=== PATIENT | male | born 1965 | race Caucasian/White ===

== ENCOUNTER 2018-06-13 16:45 | Emergency (ER) | payer MEDICARE, MEDICAID ==
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
[2018-06-13] MEDS ORDERED: ACETAMINOPHEN 500 MG TAB PO ONE (17:20)
[2018-06-13] MEDS ORDERED: NS(*) 0.9% 1000 ML BAG 1,000 ML IV ONE (17:20)
[2018-06-13 18:28] LABS: PLATELET COUNT, AUTOMATED 232 K/uL (150-450)
[2018-06-13 18:30] VITALS: BP 127/67
[2018-06-13] MEDS ORDERED: ALBUTEROL 8 GM INHALER INH ONE (19:30)
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
== END 2018-06-13 19:40 | disposition home or self-care (01) ==
LOC: ER 17:32
DX: J10.1 Influenza due to other identified influenza virus with other respiratory manifestations (principal); F17.200 Nicotine dependence, unspecified, uncomplicated; R50.9 Fever, unspecified; S09.90XA Unspecified injury of head, initial encounter; M54.2 Cervicalgia; Y35.811A Legal intervention involving manhandling, law enforcement official injured, initial encounter
CPT/HCPCS: 70450; 71046; 72125; 85025; 87502; 99284; A9270; J3535; J7030; 82040; 82247; 82310; 82374; 82435; 82565; 82947; 84075; 84132; 84155; 84295; 84450; 84460; 84520

== ENCOUNTER → 2018-06-13 | Outpatient (CLI) | payer MEDICARE, MEDICAID | LOC: AMB 16:29 | PROVIDERS: ATTEND Nurse Practitioner | DX: R11.0 Nausea (principal); R10.32 Left lower quadrant pain; R10.31 Right lower quadrant pain | CPT/HCPCS: A0425; A0429 ==

== ENCOUNTER 2018-10-07 20:27 | Emergency (ER) | payer MEDICARE, MEDICAID ==
[2018-10-07] MEDS ORDERED: fentaNYL CITR 100 MCG/2 ML AMP IVP ONE (20:35)
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
[2018-10-07] MEDS ORDERED: KETAMINE HCL 500 MG/5 ML VIAL IM ONE ×3 (20:40→21:15)
[2018-10-07] MEDS ORDERED: IOPAMIDOL 76% 100 ML INFUS BTL 100 ML ONE (21:10)
[2018-10-07] MEDS ORDERED: KETAMINE HCL 500 MG/5 ML VIAL IVP ONE (21:35)
[2018-10-07 21:46] LABS: INR 0.98
[2018-10-07 21:56] LABS: PLATELET COUNT, AUTOMATED 333 K/uL (150-450)
[2018-10-07 22:30] VITALS: BP 130/80
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
--- NOTE | 2018-10-07 22:35 | RADIOLOGY IMAGING REPORT ---
[place] [facility] [place] NAME: Jarett Oneil : 1965 MR: [id number] V: [id number] EXAM DATE: ORDERING PHYSICIAN: TIFFANIE CHANEY TECHNOLOGIST: Location: [facility] Patient: Jarett Oneil : 1965 Visit/Account:[id number] Date of Sevice: 10/07/2018 EXAMINATION: CT cervical spine without IV contrast HISTORY: Trauma. TECHNIQUE: Thin axial CT images of the cervical spine were obtained without IV contrast, with sagit bella and coronal 2D reconstructed images. One of the following dose optimization techniques was utilized in the performance of this exam: Autom ated exposure control; adjustment of the mA and/or kV according to the patient's size; or use of an i terative reconstruction technique. Specific details can be referenced in the facility's radiology C T exam operational policy. COMPARISON: 06/13/2018. FINDINGS: Image quality is partially degraded by patient motion artifact. Allowing for this, there is no eviden ce of acute fracture or subluxation along the cervical spine. Normal alignment. Vertebral body height is maintained. 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 There is mild disc space narrowing at C4-C5 and C5-C6 with endplate osteophyte formation. Facet arthropathy along the upper cervical facet joints. The dens is intact. Normal alignment at the craniocervical junction. IMPRESSION: No acute osseous findings along the cervical spine, allowing for patient motion artifact. Report Dictated By: Gage Browning MD at 10/07/2018 10:26 PM Report E-Signed By: Gage Browning MD at 10/07/2018 10:30 PM WSN:[id number]
--- NOTE | 2018-10-07 23:01 | RADIOLOGY IMAGING REPORT ---
[place] [facility] [place] Jarett Oneil : 1965 MR: [id number] V: [id number] EXAM DATE: ORDERING PHYSICIAN: TIFFANIE CHANEY TECHNOLOGIST: Location: [facility] Patient: Jarett Oneil : 1965 Visit/Account:[id number] Date of Sevice: 10/07/2018 EXAMINATION: CT chest, abdomen, and pelvis with IV contrast CT thoracic and lumbar spine with IV contrast (reformatted) HISTORY: Trauma. TECHNIQUE: Axial CT images of the chest, abdomen, and pelvis were obtained with IV contrast, with c oronal and sagittal 2D reconstructed images. One of the following dose optimization techniques was utilized in the performance of this exam: Autom ated exposure control; adjustment of the mA and/or kV according to the patient's size; or use of an i terative reconstruction technique. Specific details can be referenced in the facility's radiology C T exam operational policy. Contrast: 75 mL of IV Isovue-370. COMPARISON: None. FINDINGS: Image quality is degraded by patient motion artifact. Chest: Lungs and pleura: The lungs are clear. No focal consolidation or evidence of pulmonary contusion. No pleural effusion or pneumothorax. Mediastinum and chelsi: Negative. Heart, aorta, and great vessels: The thoracic aorta is patent and normal in caliber. No evidence of traumatic aortic injury. Normal heart size. No pericardial effusion. Chest lymph node assessment: Negative. Bones: There are multiple old bilateral rib fractures. No evidence of any acute displaced rib fractu re. Old healed fracture of the sternal body. See separate thoracic spine findings below. Chest wall: Negative. Lower neck: Negative. Abdomen/pelvis: Liver: Negative. Gallbladder and bile ducts: Negative. Spleen: Negative. Pancreas: Negative. Adrenal glands: Negative. Kidneys: Negative. The kidneys enhance normally. No retroperitoneal fluid or hemorrhage. Bowel and peritoneum: The small bowel and colon are normal in caliber. No localized bowel wall thick ening. No free fluid or free intraperitoneal air. Pelvic structures: Negative. Lymph node assessment: Negative. Vessels: Mild vascular calcifications. Normal caliber abdominal aorta. Musculoskeletal: The bony pelvis appears intact. See separate lumbar spine findings below. Body wall: Negative. CT thoracic spine: There is minimal superior endplate wedging of T2 and T3, of indeterminate chronicity. Additional mild superior endplate wedging of T8 and T11, of indeterminate chronicity. No retropulsion. Vertebral bod y height is otherwise maintained along the thoracic spine. Posterior elements are intact, with normal alignment along the thoracic facet joints. Paraspinal soft tissues are unremarkable. CT lumbar spine: There are 5 lumbar-type vertebral segments with a transitional lumbosacral segment considered L6. There is mild superior endplate wedging of L2 with 20% loss of height, of indeterminate chronicity. V ertebral body height is otherwise maintained along the lumbar spine. Normal alignment. Disc spaces are relatively well-preserved with mild degenerative endplate changes. Posterior elements are intact, with moderate facet arthropathy along the mid and lower lumbar facet joints. The paraspi nal soft tissues are unremarkable. IMPRESSION: 1. Mild age-indeterminate wedging of T2, T3, T8, T11, and L2. These may represent chronic changes but without any prior imaging for comparison. 2. Old bilateral rib fractures. No definite acute rib fracture. 3. No other acute traumatic findings in the chest, abdomen, or pelvis, including on the dedicated tho racic and lumbar spine reformats. Report Dictated By: Gage Browning MD at 10/07/2018 10:30 PM Report E-Signed By: Gage Browning MD at 10/07/2018 10:54 PM WSN:[id number]
--- NOTE | 2018-10-07 23:01 | RADIOLOGY IMAGING REPORT ---
[place] [facility] [place] Jarett Oneil : 1965 MR: [id number] V: [id number] EXAM DATE: ORDERING PHYSICIAN: TIFFANIE CHANEY TECHNOLOGIST: [facility] Patient: Jarett Oneil : 1965 Visit/Account:[id number] Date of Sevice: 10/07/2018 EXAMINATION: CT chest, abdomen, and pelvis with IV contrast CT thoracic and lumbar spine with IV contrast (reformatted) HISTORY: Trauma. TECHNIQUE: Axial CT images of the chest, abdomen, and pelvis were obtained with IV contrast, with c oronal and sagittal 2D reconstructed images. One of the following dose optimization techniques was utilized in the performance of this exam: Autom ated exposure control; adjustment of the mA and/or kV according to the patient's size; or use of an i terative reconstruction technique. Specific details can be referenced in the facility's radiology C T exam operational policy. Contrast: 75 mL of IV Isovue-370. COMPARISON: None. FINDINGS: Image quality is degraded by patient motion artifact. Chest: Lungs and pleura: The lungs are clear. No focal consolidation or evidence of pulmonary contusion. No pleural effusion or pneumothorax. Mediastinum and chelsi: Negative. Heart, aorta, and great vessels: The thoracic aorta is patent and normal in caliber. No evidence of traumatic aortic injury. Normal heart size. No pericardial effusion. Chest lymph node assessment: Negative. Bones: There are multiple old bilateral rib fractures. No evidence of any acute displaced rib fractu re. Old healed fracture of the sternal body. See separate thoracic spine findings below. Chest wall: Negative. Lower neck: Negative. Abdomen/pelvis: Liver: Negative. Gallbladder and bile ducts: Negative. Spleen: Negative. Pancreas: Negative. Adrenal glands: Negative. Kidneys: Negative. The kidneys enhance normally. No retroperitoneal fluid or hemorrhage. Bowel and peritoneum: The small bowel and colon are normal in caliber. No localized bowel wall thick ening. No free fluid or free intraperitoneal air. Pelvic structures: Negative. Lymph node assessment: Negative. Vessels: Mild vascular calcifications. Normal caliber abdominal aorta. Musculoskeletal: The bony pelvis appears intact. See separate lumbar spine findings below. Body wall: Negative. CT thoracic spine: There is minimal superior endplate wedging of T2 and T3, of indeterminate chronicity. Additional mild superior endplate wedging of T8 and T11, of indeterminate chronicity. No retropulsion. Vertebral bod y height is otherwise maintained along the thoracic spine. Posterior elements are intact, with normal alignment along the thoracic facet joints. Paraspinal soft tissues are unremarkable. CT lumbar spine: There are 5 lumbar-type vertebral segments with a transitional lumbosacral segment considered L6. There is mild superior endplate wedging of L2 with 20% loss of height, of indeterminate chronicity. V ertebral body height is otherwise maintained along the lumbar spine. Normal alignment. Disc spaces are relatively well-preserved with mild degenerative endplate changes. Posterior elements are intact, with moderate facet arthropathy along the mid and lower lumbar facet joints. The paraspi nal soft tissues are unremarkable. IMPRESSION: 1. Mild age-indeterminate wedging of T2, T3, T8, T11, and L2. These may represent chronic changes but without any prior imaging for comparison. 2. Old bilateral rib fractures. No definite acute rib fracture. 3. No other acute traumatic findings in the chest, abdomen, or pelvis, including on the dedicated tho racic and lumbar spine reformats. Report Dictated By: Gage Browning MD at 10/07/2018 10:30 PM Report E-Signed By: Gage Browning MD at 10/07/2018 10:54 PM WSN:[id number]
--- NOTE | 2018-10-07 23:02 | RADIOLOGY IMAGING REPORT ---
FACILITY: [facility] - [place] PATIENT NAME: Jarett Oneil : 1965 MR: [id number] V: [id number] EXAM DATE: ORDERING PHYSICIAN: TIFFANIE CHANEY TECHNOLOGIST: Location: [facility] - [place] Patient: Jarett Oneil : 1965 Visit/Account:[id number] Date of Sevice: 10/07/2018 EXAMINATION: CT chest, abdomen, and pelvis with IV contrast CT thoracic and lumbar spine with IV contrast (reformatted) HISTORY: Trauma. TECHNIQUE: Axial CT images of the chest, abdomen, and pelvis were obtained with IV contrast, with c oronal and sagittal 2D reconstructed images. One of the following dose optimization techniques was utilized in the performance of this exam: Autom ated exposure control; adjustment of the mA and/or kV according to the patient's size; or use of an i terative reconstruction technique. Specific details can be referenced in the facility's radiology C T exam operational policy. Contrast: 75 mL of IV Isovue-370. COMPARISON: None. FINDINGS: Image quality is degraded by patient motion artifact. Chest: Lungs and pleura: The lungs are clear. No focal consolidation or evidence of pulmonary contusion. No pleural effusion or pneumothorax. Mediastinum and chelsi: Negative. Heart, aorta, and great vessels: The thoracic aorta is patent and normal in caliber. No evidence of traumatic aortic injury. Normal heart size. No pericardial effusion. Chest lymph node assessment: Negative. Bones: There are multiple old bilateral rib fractures. No evidence of any acute displaced rib fractu re. Old healed fracture of the sternal body. See separate thoracic spine findings below. Chest wall: Negative. Lower neck: Negative. Abdomen/pelvis: Liver: Negative. Gallbladder and bile ducts: Negative. Spleen: Negative. Pancreas: Negative. Adrenal glands: Negative. Kidneys: Negative. The kidneys enhance normally. No retroperitoneal fluid or hemorrhage. Bowel and peritoneum: The small bowel and colon are normal in caliber. No localized bowel wall thick ening. No free fluid or free intraperitoneal air. Pelvic structures: Negative. Lymph node assessment: Negative. Vessels: Mild vascular calcifications. Normal caliber abdominal aorta. Musculoskeletal: The bony pelvis appears intact. See separate lumbar spine findings below. Body wall: Negative. CT thoracic spine: There is minimal superior endplate wedging of T2 and T3, of indeterminate chronicity. Additional mild superior endplate wedging of T8 and T11, of indeterminate chronicity. No retropulsion. Vertebral bod y height is otherwise maintained along the thoracic spine. Posterior elements are intact, with normal alignment along the thoracic facet joints. Paraspinal soft tissues are unremarkable. CT lumbar spine: There are 5 lumbar-type vertebral segments with a transitional lumbosacral segment considered L6. There is mild superior endplate wedging of L2 with 20% loss of height, of indeterminate chronicity. V ertebral body height is otherwise maintained along the lumbar spine. Normal alignment. Disc spaces are relatively well-preserved with mild degenerative endplate changes. Posterior elements are intact, with moderate facet arthropathy along the mid and lower lumbar facet joints. The paraspi nal soft tissues are unremarkable. IMPRESSION: 1. Mild age-indeterminate wedging of T2, T3, T8, T11, and L2. These may represent chronic changes but without any prior imaging for comparison. 2. Old bilateral rib fractures. No definite acute rib fracture. 3. No other acute traumatic findings in the chest, abdomen, or pelvis, including on the dedicated tho racic and lumbar spine reformats. Report Dictated By: Gage Browning MD at 10/07/2018 10:30 PM Report E-Signed By: Gage Browning MD at 10/07/2018 10:54 PM WSN:[id number]
== END 2018-10-07 23:08 ==
LOC: ER 20:29
DX: F10.921 Alcohol use, unspecified with intoxication delirium (principal); Y90.6 Blood alcohol level of 120-199 mg/100 ml; M54.5 Low back pain
CPT/HCPCS: 70450; 71260; 72125; 72129; 72132; 74177; 80305; 81001; 85025; 85610; 85730; 96372; 96374; 96375; 99284; G0480; J3010; Q9967; 80320; 82040; 82247; 82310; 82374; 82435; 82565; 82947; 84075; 84132; 84155; 84295; 84450; 84460; 84520

== ENCOUNTER → 2018-10-07 | Outpatient (CLI) | payer MEDICARE, MEDICAID ==
[~2018-10-07] MED LIST: CYCL10TA29 PO; TRAM-420 PO
== END ==
LOC: AMB 20:15
PROVIDERS: ATTEND Nurse Practitioner
DX: F10.129 Alcohol abuse with intoxication, unspecified (principal)
CPT/HCPCS: A0425; A0429

== ENCOUNTER 2018-10-09 21:28 | Emergency (ER) | payer MEDICARE, MEDICAID ==
--- NOTE | 2018-10-09 21:39 | ER Report ---
History and Physical Time Seen By MD: 21:36 HPI/ROS CHIEF COMPLAINT: Low back pain muscle spasm HISTORY OF PRESENT ILLNESS: Patient is a 53-year-old male here with complaints of low back pain, muscle spasms especially in the lateral paraspinal musculature. Patient reportedly was here on October 07 after jumping off of the bridge attempting to "fly". At that time, the patient had extensive trauma scanning with CT imaging which showed no acute findings. Patient currently describes worsening pain in the left lower back which she describes as spasms especially when rolling over, attempting to sit. Patient did take ibuprofen yesterday without significant relief of symptoms. Denies bowel or bladder incontinence, motor weakness, numbness. REVIEW OF SYSTEMS: Constitutional: No fever, no chills. Musculoskeletal: + Lateral lower back pain Skin: No rashes. Neurological: No focal neurological deficits on examination Allergies: Coded Allergies: No Known Drug Allergies (Unverified , 10/07/18) Home Meds Active Scripts Cyclobenzaprine Hcl (CYCLOBENZAPRINE HCL) 10 Mg Tablet, 10 MG PO Q8H PRN for MUSCLE SPASMS, #20 TAB 0 Refills Prov:DULCE BISWAS DO 10/09/18 Tramadol Hcl (TRAMADOL HCL) 50 Mg Tablet, 50 MG PO Q6H PRN for PAIN, #10 TAB 0 Refills Prov:DULCE BISWAS DO 10/09/18 Hx Smoking: Yes Smoking Status: Current: Every Day Smoker Exposure to Second Hand Smoke?: Yes Hx Substance Use Disorder: Yes Hx Alcohol Use: Yes Constitutional Vital Sign - Last 24 Hours 10/09/18 21:35 Temp 98.0 Pulse 77 Resp 16 B/P (MAP) 143/83 Pulse Ox 92 Physical Exam General Appearance: The patient is alert, has no immediate need for airway protection and no signs of toxicity. Uncomfortable appearing Eyes: Pupils equal and round no pallor or injection. ENT, Mouth: Mucous membranes are moist. Respiratory: There are no retractions, lungs are clear to auscultation. Cardiovascular: Regular rate and rhythm. Gastrointestinal: Abdomen is soft and non tender, no masses, bowel sounds normal. Neurological: No focal neurological deficits, neurovascularly intact in all extremities Skin: Warm and dry, no rashes. Musculoskeletal: Neck is supple non tender.+ Lateral lower back pain worse on the left side in the paraspinal musculature Extremities are nontender, nonswollen and have full range of motion. DIFFERENTIAL DIAGNOSIS: After history and physical exam differential diagnosis was considered for back pain including but not limited to muscular pain, herniated disc, spine fracture, intra-abdominal causes and urinary tract infection. Medical Decision Making EKG/Imaging Imaging Please see prior CT imaging reports on October 07 ED Course/Re-evaluation ED Course Patient is a 53-year-old male here with complaints of lateral lower back pain, muscle spasms since October 07 when he jumped off of a bridge. CT imaging at that time showed no acute findings. Patient came in for evaluation because he has been having severe muscle spasms in the paraspinal musculature especially in the lower back. Patient was given Toradol, Flexeril, tramadol and prescription for outpatient treatment. Recommend close PCP follow-up. Return precautions provided. Decision to Disposition Date: Oct 09, 2018 Decision to Disposition Time: 22:00 Depart Departure Latest Vital Signs Vital Signs Date Time Temp Pulse Resp B/P (MAP) Pulse Ox O2 Delivery O2 Flow Rate FiO2 10/09/18 21:35 98.0 77 16 143/83 92 Impression: Primary Impression: Back pain Condition: Improved Disposition: HOME OR SELF-CARE New Scripts Cyclobenzaprine Hcl (CYCLOBENZAPRINE HCL) 10 Mg Tablet 10 MG PO Q8H PRN for MUSCLE SPASMS, #20 TAB 0 Refills Prov: DULCE BISWAS DO 10/09/18 Tramadol Hcl (TRAMADOL HCL) 50 Mg Tablet 50 MG PO Q6H PRN for PAIN, #10 TAB 0 Refills Prov: DULCE BISWAS DO 10/09/18 Patient Instructions: Back Pain (GEN) Additional Instructions: Please take ibuprofen or Tylenol as needed for primary pain control. You may take tramadol 1 tablet every 8 hours as needed for breakthrough pain control. You may take Flexeril one tablet every 6-8 hours as needed for muscle spasms. Please return promptly if you develop bowel or bladder incontinence, motor weakness, fevers, chills. Please follow-up with her family provider in the next 3-5 days. DULCE BISWAS DO Oct 09, 2018 21:38
[2018-10-09] MEDS ORDERED: CYCLOBENZAPRINE HCL 10 MG TH PO ONE (21:50)
[2018-10-09] MEDS ORDERED: CYCLOBENZAPRINE HCL 10 MG TAB PO ONE (21:50)
[2018-10-09] MEDS ORDERED: KETOROLAC 60 MG/2 ML VIAL IM ONE (21:50)
[2018-10-09] MEDS ORDERED: traMADol 50 MG TAB PO ONE (21:55)
[2018-10-09] MEDS ORDERED: TRAM-420 PO (22:02)
[2018-10-09] MEDS ORDERED: CYCL10TA29 PO (22:02)
[2018-10-09] MEDS ORDERED: traMADol 50 MG TAB TH 2 TAB/BOTTLE PO ONE (22:05)
[2018-10-09 22:15] VITALS: BP 142/65
== END 2018-10-09 22:30 | disposition home or self-care (01) ==
LOC: ER 21:41
DX: M54.5 Low back pain (principal); M62.830 Muscle spasm of back
CPT/HCPCS: 96372; 99283; A9270; J1885; C9399

== ENCOUNTER → 2018-10-09 | Outpatient (CLI) | payer MEDICARE, MEDICAID | LOC: AMB 21:14 | PROVIDERS: ATTEND Nurse Practitioner | DX: M54.5 Low back pain (principal) | CPT/HCPCS: A0425; A0429 ==